=== PATIENT | male | born 1955 | race Two or more races ===

== ENCOUNTER → 2021-04-16 | Day surgery (SDC) | payer MEDICARE ==
[~2021-04-16] VITALS: Ht 167.6 cm; Wt 84.0 kg
[~2021-04-16] MED LIST: IV RINGERS,LACTATED 1000ML 1,000 ML IV ONE
[2021-04-16 10:31] VITALS: BP 160/90
[2021-04-16 11:00] VITALS: BP 99/56
--- NOTE | 2021-04-16 11:21 | PREOP HP ---
DATE OF SERVICE: 04/16/2021 PREOPERATIVE HISTORY AND PHYSICAL REFERRING PHYSICIAN: Dr. Merary Acharya. PRIMARY CARE PHYSICIAN: Dr. Merary Acharya. REASON FOR PROCEDURE: Colorectal cancer screening. HISTORY OF PRESENT ILLNESS: This is a 65-year-old gentleman who presents today for colorectal cancer screening. He has had a colonoscopy 10 years ago that was unremarkable. ALLERGIES: No known drug allergies. PAST MEDICAL HISTORY: Reflux. FAMILY MEDICAL HISTORY: Hypertension. SOCIAL HISTORY: No tobacco, alcohol or IV drug abuse. MEDICATIONS: MAR reviewed. REVIEW OF SYSTEMS: A 13-point review of systems was done, it is positive as per HPI, otherwise negative. PHYSICAL EXAMINATION: VITAL SIGNS: He is afebrile and his vital signs are stable. GENERAL: He is a well-developed, well-nourished male in no apparent distress. HEENT: Oropharynx is clear. CARDIAC: S1, S2. LUNGS: Clear. ABDOMEN: Normoactive bowel sounds, soft, nontender, nondistended. EXTREMITIES: No edema. NEUROLOGIC: Awake, alert, oriented x 3. ASSESSMENT AND PLAN: Colorectal cancer screening. The risks and benefits of the procedure including bleeding, perforation, nondiagnosis and sedation were explained and he has agreed to proceed. LUIS/CATINA MCCRACKEN: Danyelle TID: [id number]
== END | disposition home or self-care (01) ==
LOC: SURG 09:55
PROVIDERS: ATTEND Internal Medicine Gastroenterology
DX: Z12.11 Encounter for screening for malignant neoplasm of colon (principal); K64.0 First degree hemorrhoids; K63.5 Polyp of colon; K62.1 Rectal polyp; K63.89 Other specified diseases of intestine; I10 Essential (primary) hypertension; E78.00 Pure hypercholesterolemia, unspecified; Z79.899 Other long term (current) drug therapy; Z98.890 Other specified postprocedural states; Z82.49 Family history of ischemic heart disease and other diseases of the circulatory system
CPT/HCPCS: 45380; 88305